=== PATIENT | female | born 1940 | race Caucasian/White ===

== ENCOUNTER → 2016-12-15 | Outpatient (CLI) | payer OTHER | LOC: FIMAGING 12:10 | PROVIDERS: ATTEND Internal Medicine | DX: M25.561 Pain in right knee (principal); S72.411A Displaced unspecified condyle fracture of lower end of right femur, initial encounter for closed fracture; M22.41 Chondromalacia patellae, right knee; M25.461 Effusion, right knee; M71.21 Synovial cyst of popliteal space [Baker], right knee ==

== ENCOUNTER 2018-02-08 13:17 | Emergency (ER) | payer OTHER ==
--- NOTE | 2018-02-08 13:30 | EDPHY ---
H & P Stated Complaint: TRIPPED ON HOSE FELL INJ/R WRIST AND L THUMB/DENIES OTHER INJ Time Seen by Provider: 02/08/18 13:29 - Personal History Current Tetanus Diphtheria and Acellular Pertussis (TDAP): No - Medical/Surgical History Hx Asthma: No Hx Chronic Respiratory Disease: No Hx Diabetes: No Hx Cardiac Disease: No Hx Renal Disease: No Hx Cirrhosis: No Hx Alcoholism: No Hx HIV/AIDS: No Hx Splenectomy or Spleen Trauma: No Other PMH: ARTHRITIS - Social History Smoking Status: Never smoked Constitutional: Initial Vital Signs Temperature (C) 37.1 C 02/08/18 13:24 Heart Rate 89 02/08/18 13:24 Respiratory Rate 18 02/08/18 13:24 Blood Pressure 159/103 H 02/08/18 13:24 O2 Sat (%) 95 02/08/18 13:24 O2 Delivery Mode Room Air Allergies/Adverse Reactions: No Known Allergies Allergy (Unverified 02/08/18 13:24) Home Medications: Medication Instructions Recorded NK [No Known Home Meds] 02/08/18 Medical Decision Making - Diagnostics Imaging: I viewed and interpreted images myself ED Course/Re-evaluation: CHIEF COMPLAINT: Forearm and thumb injuries HISTORY OF PRESENT ILLNESS: The patient is a 77 y/o female with a history of arthritis complaining of right forearm pain and left thumb pain secondary to a fall this morning. She describes tripping and falling over a garden hose and landing on her right forearm and left hand. She complains of pain and bruising at these sites. She denies head strike, loss of consciousness, weakness, paresthesias, or any other injuries. No preceding symptoms. She takes aspirin very occasionally and does not use anticoagulants. REVIEW OF SYSTEMS: A 10 point review of systems was performed and is negative with the exception of the elements mentioned in the history of present illness. PHYSICAL EXAM: HR, BP, O2 Sat, RR. Temp noted General Appearance: Alert, well hydrated, appropriate, and non-toxic appearing. Head: Atraumatic without scalp tenderness or obvious injury Eyes: Pupils equal, round, reactive to light and accommodation, EOMI, no trauma , no injection. Throat: Mucus membranes moist. Neck: Supple Respiratory: No distress Cardiovascular: Bilateral radial pulses intact. Good capillary refill all extremities. Musculoskeletal: Ecchymosis and mild tenderness to left thenar eminence, ecchymosis and hematoma to distal ulnar aspect of right forearm. Otherwise atraumatic. Normal active ROM of all extremities. Neurological: Alert, appropriate, and interactive. Nonfocal. Skin: No rashes, good turgor, no nodules on palpation. Past medical history: Arthritis Past surgical history: Noncontributory Family history: Noncontributory Social history: Lives in [place]. Retired. DIAGNOSTICS/PROCEDURES/CRITICAL CARE TIME: Left hand x-ray: acute sesamoid fracture, thenar region Right wrist x-ray: Distal radius buckle fracture DIFFERENTIAL DIAGNOSIS: The differential diagnosis for the patient's injury included but was not limited to fracture, ligamentous injury, contusion, muscular strain. MEDICAL DECISION MAKING: This is a healthy 77 y/o female not on anticoagulants who presents with ecchymosis and tenderness to her left thumb and right forearm. She is neurovascularly intact. No other trauma noted. Plan for x-rays and pain management as needed. X-rays show sesamoid fracture in left hand and right distal radius fracture. Patient will be splinted and discharged with script for Vicodin and referral to ortho for follow up. Return precautions discussed. She is comfortable with this plan. Departure - Departure Disposition: Home, Routine, Self-Care Clinical Impression: Fracture of sesamoid bone of hand Qualifiers: Encounter type: initial encounter Fracture type: closed Laterality: left Qualified Code(s): S62.102A - Fracture of unspecified carpal bone, left wrist, initial encounter for closed fracture Buckle fracture of distal end of right radius Qualifiers: Encounter type: initial encounter Fracture type: closed Qualified Code(s): S52.521A - Torus fracture of lower end of right radius, initial encounter for closed fracture Condition: Good Instructions: Hand Fracture (ED), Wrist Fracture in Adults (ED) Additional Instructions: 1. Wear splints for comfort and support until follow up with orthopedist. Okay to remove to shower. 2. Use [place] as prescribed as needed for severe pain. This medication can make you drowsy and constipated, take appropriate precautions. 3. Follow up with Dr. Carringtno, orthopedist, in the next week. 4. Return to the ED for severe pain, weakness, numbness, or other worsening of condition. Referrals: Med Stark MD [Primary Care Provider] - As per Instructions Carlos Carrington MD [Medical Doctor] - As per Instructions Report Scribed for: Christiano Santoro Report Scribed by: Ashley Groves Date of Report: 02/08/18 Time of Report: 13:39
[2018-02-08 15:07] VITALS: BP 158/103
== END 2018-02-08 15:06 | disposition home or self-care (01) ==
DX: S62.102A Fracture of unspecified carpal bone, left wrist, initial encounter for closed fracture (principal); S52.521A Torus fracture of lower end of right radius, initial encounter for closed fracture; W01.0XXA Fall on same level from slipping, tripping and stumbling without subsequent striking against object, initial encounter; Y92.007 Garden or yard of unspecified non-institutional (private) residence as the place of occurrence of the external cause
CPT/HCPCS: 73110; 73140; 99283; L3807; L3925